=== PATIENT | male | born 1990 | race African-American/Black ===

== ENCOUNTER 2019-01-02 19:47 | Emergency (ER) | payer OTHER ==
[~2019-01-02] VITALS: Wt 65.0 kg
[2019-01-02] MEDS ORDERED: KETOROLAC 15 MG INJ IV STA (22:14)
--- NOTE | 2019-01-02 23:20 | ERD ---
ER Documentation Chief Complaint Chief Complaint since Sat: cough, run nose, fever, chills. no meds taken. HPI This is a 28-year-old previously healthy male who is presenting with 4 to 5 days of intermittent fever, chills, congested cough of clear sputum, nasal congestion and rhinorrhea and feeling generally unwell. The patient reports nausea with a few episodes of nonbilious nonbloody yellow vomiting over the weekend, but this is not happened since. The patient has started to feel little bit better, but his family was concerned that he could have pneumonia and wanted him to come in for evaluation. Patient also endorses a sore throat, worse in the morning. He has not had any tonsillar exudate. He does not endorse any swollen glands or lymphadenopathy. He has not taken any medications at home to help relieve his symptoms. ROS All systems reviewed and are negative except as per history of present illness. Allergies Allergies: Coded Allergies: No Known Allergy (Unverified , 01/02/19) PMhx/Soc Medical and Surgical Hx: pt denies Medical Hx, pt denies Surgical Hx History of Surgery: No Hx Neurological Disorder: No Hx Respiratory Disorders: No Hx Cardiac Disorders: No Hx Psychiatric Problems: No Hx Miscellaneous Medical Probl: No Hx Alcohol Use: No Hx Substance Use: No Hx Tobacco Use: No Smoking Status: Never smoker FmHx Family History: No diabetes Physical Exam Vitals Vital Signs Date Temp Pulse Resp B/P (MAP) Pulse Ox O2 O2 Flow FiO2 Time Delivery Rate 01/02/19 99.5 96 20 154/93 99 20:05 (113) Physical Exam Const: No acute distress Head: Atraumatic Eyes: Normal Conjunctiva ENT: Normal External Ears, Nose and Mouth. Neck: Full range of motion. No meningismus. Resp: Questionable left posterior middle field rhonchi, otherwise clear to auscultation bilaterally Cardio: Regular rate and rhythm, no murmurs Abd: Soft, non tender, non distended. Normal bowel sounds Skin: No petechiae or rashes Back: No midline or flank tenderness Ext: No cyanosis, or edema Neur: Awake and alert Psych: Normal Mood and Affect Results 24 hrs Current Medications Medications Dose Sig/Eliza Start Time Status Last (Trade) Ordered Route PRN Stop Time Admin Dose Reason Admin Ketorolac 15 mg ONCE STAT 01/02/19 DC 01/02/19 Tromethamine IV 22:14 22:28 (Toradol) 01/02/19 22:16 Procedures/[facility] MDM The patient's presentation warrants further investigation. Previous medical records, if available, were reviewed. IMAGING Imaging reviewed. CXR 1V Interpreted by me Soft Tissue: No acute abnormalities Bones: No acute abnormalities Mediastinum/Cardiac Silhouette: Unremarkable. No widened mediastinum. Lungs: No acute abnormalities. Normal pulmonary vasculature. No pneumothorax. No pulmonary edema. Clear costal diaphragmatic angles. No pleural effusions. No opacity or consolidations concerning for pneumonia. TREATMENT/DISPOSITION The patient symptoms most consistent with an upper respiratory infection. I do suspect a viral etiology. Despite not taking anything at home, the patient is afebrile with normal vital signs. I did hear a questionable rhonchi in the left posterior middle field. An x-ray was completed to assess for the possibility of pneumonia, but it was negative. The patient does endorse a sore throat. He is afebrile. He has a cough. He has no tonsillar exudate or lymphadenopathy. It is worse in the morning. I do suspect postnasal drip. I have low suspicion for bacterial pharyngitis. There is no evidence of peritonsillar abscess or retropharyngeal abscess. I do not suspect bacterial tracheitis. I do not suspect bronchitis. The patient was offered a dose of Toradol. DISCHARGE Upon reevaluation of the patient, symptoms have improved. No emergent diagnoses were identified. At this time, I feel that the patient stable for discharge. The patient was instructed to follow-up with a primary care physician in 1-3 days. The patient will be given strict precautions with which to return to the emergency department. Prescriptions: Ibuprofen, Tessalon Perles The patient's blood pressure was elevated at greater than 120/80 while in the emergency department. The patient was otherwise stable with no evidence of hypertensive urgency or emergency. The patient does not require admission for blood pressure control. I have discussed with the patient the risks of hypertension. I have instructed the patient to return to the ER for any new or worsening symptoms including chest pain, shortness of breath, headache, blurred vision, confusion, nausea, vomiting or LOC. I have advised the patient to follow up with the primary care physician for outpatient monitoring and treatment for hypertension in 1-3 days. Disclaimer: Inadvertent spelling and grammatical errors are likely due to EHR/dictation software use and do not reflect on the overall quality of patient care. Note that the electronic time recorded on this note does not necessarily reflect the actual time of the patient encounter. Departure Diagnosis: Primary Impression: Upper respiratory infection URI type: unspecified URI Qualified Codes: J06.9 - Acute upper respiratory infection, unspecified Additional Impressions: Cough Nasal congestion Rhinorrhea Pharyngitis with viral syndrome Condition: Stable Patient Instructions: Preventing Common Respiratory Infections, Cough, Chronic, Uncertain Cause, (Adult) Additional Instructions: Thank you for for coming to [facility] for your care today. Please ask your nurse or provider if you have questions about your care today and do not leave until all your questions have been answered. Please use any medications given as directed and follow-up with your doctor (or the doctor you were referred to) in the next 1-3 days. If you do not have a primary care doctor [place] [facility] [place] [facility] You may also use motrin and tylenol as needed for fever and/or pain unless instructed otherwise by your provider or nurse. Indications for more urgent follow-up have been discussed, but you may return to the Emergency Department at ANY time for any worrisome or worsening symptoms. If you have abdominal pain, please know that no test or exam you received is perfect and you should follow up within 8 hours for continued pain. If you had any imaging studies today, such as an X-Ray or CT Scan, these studies will be reviewed later by a radiologist. You will be called if there are important findings that were not identified today, so make sure the contact information you provided at registration is correct. If you received any narcotic pain control medicine today, such as Vicodin, Morphine or Dilaudid, your coordination and judgment may be affected for a number of hours. Please do not drive or operate heavy machinery, and you may want someone to assist you at home. If you were given a prescription for narcotic medication, be aware that it is very addictive- use sparingly and only if necessary. PLEASE SEEK FURTHER EVALUATION AND MANAGEMENT AT YOUR DOCTORS OFFICE WITHIN THE NEXT 1-3 DAYS. IT IS YOUR RESPONSIBILITY TO MAKE AN APPOINTMENT FOR FOLOW-UP CARE. IF YOU HAVE A PRIMARY DOCTOR, PLEASE CALL THEIR OFFICE TO SCHEDULE AN APPOINTMENT FOR FOLLOW UP. IF YOU DO NOT HAVE A PRIMARY DOCTOR YOU CAN CALL OUR PHYSICIAN REFERRAL HOTLINE AT IF YOU CAN NOT AFFORD TO SEE A PHYSICIAN YOU CAN CHOSE FROM THE FOLLOWING [facility] CLINICS: [facility] [address] [facility] [address] [facility] [address] [facility] [address] [facility] [address] [facility] [facility]. [address] MATTHEW SHERWOOD MD January 02, 2019 23:20
[2019-01-02] MEDS ORDERED: BENZ-6 PO (23:21)
[2019-01-02] MEDS ORDERED: IBUP-1542 PO (23:21)
[2019-01-02 23:37] VITALS: BP 134/81; PULSE 71; RESP 18
== END 2019-01-02 23:38 | disposition home or self-care (01) ==
LOC: FTE 19:47
DX: J06.9 Acute upper respiratory infection, unspecified (principal); B34.9 Viral infection, unspecified
CPT/HCPCS: 71045; 96372; J1885; Z7502